=== PATIENT | male | born 1945 | race Caucasian/White ===

== ENCOUNTER → 2017-02-27 | Outpatient (CLI) | payer OTHER ==
[~2017-02-27] MED LIST: EZET10TA63; SIMV20TA2
[2017-02-27 14:53] LABS: BASO ABS # 0.05 K/uL (0-0.2); COMPLETE YES; IG% 0.2 %; LYMPH % 32.1 %; LYMPH ABS # 1.62 K/uL (1.2-3.4); MEAN CELL VOLUME 98.8 fL (80-100); MEAN CORPUSCULAR HEMOGLOBIN 32.1 pg (25-34); MEAN CORPUSCULAR HGB CONC 32.5 g/dl (32-36); MEAN PLATELET VOLUME 10.9 fL (7.4-10.4); MONO % 13.1 %; NEUT % 48.6 %; PLATELET COUNT 207 K/uL (130-400); RED BLOOD COUNT 4.05 M/uL (4.7-6.1); WHITE BLOOD COUNT 5.05 K/uL (4.8-10.8)
[2017-02-27 15:14] LABS: ALT/SGPT 36 U/L (12-78); AST/SGOT 23 U/L (15-37); BLOOD UREA NITROGEN 16 mg/dl (7-18); BUN/CREATININE RATIO 17.3 (10-20); CALCIUM 8.5 mg/dl (8.5-10.1); CARBON DIOXIDE 26 mmol/L (21-32); CHLORIDE 109 mmol/L (98-107); CREATININE 0.92 mg/dl (0.60-1.40); GLUCOSE 113 mg/dl (70-99); POTASSIUM 4.4 mmol/L (3.5-5.1); SODIUM 141 mmol/L (136-145)
[2017-02-27 15:19] LABS: ALB/GLOB RATIO 1.1 (0.9-2); ALKALINE PHOSPHATASE 59 U/L (45-117); CHOLESTEROL 142 mg/dl (0-200); CHOLESTEROL/HDL RATIO 3.2; HDL CHOLESTEROL 44 mg/dl; LDL CHOLESTEROL CALCULATED 75 mg/dl; PROSTATE SPECIFIC ANTIGEN 0.309 ng/ml (0.000-4.000); TRIGLYCERIDES 115 mg/dl (0-150); VERY LOW DENSITY LIPOPROT CALC 23 mg/dl
== END | disposition home or self-care (01) ==
LOC: C.LABSPEC 13:42
PROVIDERS: ATTEND Family Medicine
DX: Z00.00 Encounter for general adult medical examination without abnormal findings (principal); Z12.5 Encounter for screening for malignant neoplasm of prostate; I25.10 Atherosclerotic heart disease of native coronary artery without angina pectoris; E78.2 Mixed hyperlipidemia

== ENCOUNTER 2017-10-15 09:06 | Inpatient (IN) | payer OTHER ==
[2017-09-14 13:45] VITALS: Ht 172.7 cm; Wt 93.5 kg
--- NOTE | 2017-09-14 14:27 | PAT Medication Instructions ---
Service Date Sep 14, 2017. Current Home Medication List Acetaminophen (Tylenol Arthritis Ext Rel), 650 MG PO BID Aspirin (Aspirin Ec), 81 MG PO QAM Atorvastatin (Lipitor), 40 MG PO HS Clopidogrel (Plavix), 75 MG PO QAM Isosorbide Mononitrate Ext Rel (Imdur Ext Rel), 15 MG PO QAM Lisinopril (Zestril), 2.5 MG PO QAM Metoprolol Succ (Toprol Xl) (Toprol-Xl), 12.5 MG PO HS [Otc Med ], 1 TAB PO PRN Medication Instructions For Your Scheduled Surgery - Hold the following medications 5 days prior to surgery per your real estate site analyst' s instructions: Clopidogrel (Plavix), 75 MG PO QAM - Hold the following medications the morning of surgery: [Otc Med ], 1 TAB PO PRN Lisinopril (Zestril), 2.5 MG PO QAM - Take the following medications the morning of surgery with a sip of water: Aspirin (Aspirin Ec), 81 MG PO QAM Acetaminophen (Tylenol Arthritis Ext Rel), 650 MG PO BID (can be tkaen up to four hours before surgery) Isosorbide Mononitrate Ext Rel (Imdur Ext Rel), 15 MG PO QAM - Take the following medications as scheduled the night before surgery: Metoprolol Succ (Toprol Xl) (Toprol-Xl), 12.5 MG PO HS Atorvastatin (Lipitor), 40 MG PO HS Acetaminophen (Tylenol Arthritis Ext Rel), 650 MG PO BID If you have any questions please call us at [phone] or [phone] or [phone]
--- NOTE | 2017-09-14 15:19 | DIAGNOSTIC IMAGING REPORT ---
CHEST 2 VIEWS ROUTINE CLINICAL HISTORY: Preoperative chest COMPARISON STUDY: No previous studies for comparison. FINDINGS: The cardiac and mediastinal contours are normal. There is no evidence of focal pulmonary consolidation. There is no evidence of failure. No pleural effusions are visualized.[ There is a calcified right middle lobe granuloma. IMPRESSION: No active disease in the chest. Electronically signed by: Gilberto Howe M.D. 09/14/2017 3:18 PM Dictated Date/Time: 09/14/2017 3:18 PM
[2017-09-14 16:02] LABS: BASO % 0.7 %; BASO ABS # 0.03 K/uL (0-0.2); EOS % 3.9 %; EOS ABS # 0.18 K/uL (0-0.5); HEMATOCRIT 38.5 % (42-52); HEMOGLOBIN 12.8 g/dL (14.0-18.0); IG# 0.01 K/uL (0.00-0.02); LYMPH % 37.1 %; MEAN CORPUSCULAR HEMOGLOBIN 33.2 pg (25-34); MEAN CORPUSCULAR HGB CONC 33.2 g/dl (32-36); MEAN PLATELET VOLUME 10.9 fL (7.4-10.4); MONO % 14.8 %; MONO ABS # 0.68 K/uL (0.11-0.59); NEUT % 43.3 %; NEUT ABS # 1.98 K/uL (1.4-6.5); PLATELET COUNT 193 K/uL (130-400); RED CELL DISTRIBUTION WIDTH CV 13.7 % (11.5-14.5); RED CELL DISTRIBUTION WIDTH SD 49.5 fL (36.4-46.3); WHITE BLOOD COUNT 4.58 K/uL (4.8-10.8)
[2017-09-14 16:10] LABS: ALBUMIN 3.4 gm/dl (3.4-5.0); CALCIUM 8.6 mg/dl (8.5-10.1); CREATININE 0.87 mg/dl (0.60-1.40); POTASSIUM 4.3 mmol/L (3.5-5.1)
[2017-09-14 16:14] LABS: PTT PATIENT 26.2 SECONDS (21.0-31.0)
[2017-09-15 07:02] LABS: HEMOGLOBIN A1C 6.2 % (4.5-5.6)
--- NOTE | 2017-10-14 18:25 | HISTORY & PHYSICAL EXAMINATION ---
DATE OF ADMISSION: 10/15/2017 CHIEF COMPLAINT: Chronic left shoulder pain. HISTORY OF PRESENT ILLNESS: This is a 71-year-old male patient of Dr. Hair'gary complaining of chronic left shoulder pain and weakness, longstanding, now progressively getting worse. The patient has failed conservative treatment and has elected to proceed with a left total shoulder arthroplasty with a reversed set up on backup. PAST MEDICAL HISTORY: Coronary artery disease status post an DE in 2016, hypercholesterolemia, and rheumatoid arthritis. SOCIAL HISTORY: Nonsmoker and occasional drinker. PAST SURGICAL HISTORY: Carpal tunnel release and knee replacement surgery in the past. FAMILY HISTORY: Noncontributory. REVIEW OF SYSTEMS: The patient complains of chronic left shoulder pain and weakness. Otherwise, denies any shortness of breath, chest pain, nausea, vomiting or any other joint complaints. MEDICATIONS: Isosorbide dinitrate 30 mg 1-1/2 tablets daily, aspirin 81 mg daily, Tylenol extra strength 500 mg 2 tablets every 6 hours as needed, atorvastatin 40 mg daily, lisinopril 2.5 mg daily, Plavix 75 mg daily, metoprolol 25 mg 1/2 tablet 2 times daily. ALLERGIES: No known drug allergies. PHYSICAL EXAMINATION: GENERAL: Well-developed, well-nourished 71-year-old male in no acute distress. He is alert and oriented x3 and pleasant. HEENT: Normocephalic, atraumatic. Extraocular motions are intact. Pupils are equal and reactive to light. HEART: Regular rate and rhythm, no murmurs. LUNGS: Clear. ABDOMEN: Soft, nontender, bowel sounds present. EXTREMITIES: Left shoulder reveals active range of motion to 120 degrees, passively to 140 degrees. He has 3/5 strength with external rotation, 4/5 strength with internal rotation. He has crepitation with passive range of motion and pain. NEUROLOGIC: Neurovascularly, he is intact in his left upper extremity. DIAGNOSES: Left shoulder end-stage osteoarthritis with a history of hypertension, hypercholesterolemia, coronary artery disease status post a myocardial infarction in 2016 and rheumatoid arthritis. PLAN: The patient was advised of his diagnosis. Indications, risks, benefits, and postop course have all been reviewed. The patient wished to proceed with a left total shoulder arthroplasty with a reversed set up as backup. Necessary consent forms, preoperative testing and clearances will be obtained.
[2017-10-15] VITALS (7 sets, daily range): BP systolic 117–159; BP diastolic 72–91; PULSE 56–88; TEMP 36.3–36.6; O2SAT 93–96
[~2017-10-15] VITALS: Ht 172.7 cm; Wt 93.5 kg
[~2017-10-15 09:06] MED LIST changes: +ACET1TAB84 PO; +ACETAMINOPHEN 500 MG TAB PO SCH; +ASPI81TA28 PO; +ATOR-24 PO; +ATROPINE SULFATE 0.1 MG/ML 5ML SYR IV PRN; +CEFAZOLIN 2000MG IV PUSH 10 ML IV SCH; +CLOP1TAB15 PO; +CeleBREX 200 MG CAP PO SCH; +DEXAMETHASONE 4 MG TAB PO SCH; -EZET10TA63; +EpHEDrine SULFATE INJ 50 MG/ML AMP IV PRN; +FAMOTIDINE 20 MG TAB PO SCH; +FENTANYL CITRATE INJ 50 MCG/1 ML 2 ML VIAL IV PRN; +GABAPENTIN 300 MG CAP PO SCH; +ISOS30TA3 PO; +LACTATED RINGER'S 1000ML 1,000 ML IV SCH; +LACTATED RINGER'S 1000ML IV SCH; +LISI-729 PO; +METO25TA3 PO; +METOCLOPRAMIDE HCL 10 MG TAB PO SCH; +ONDANSETRON INJ 2 MG/ML 2 ML VIAL IV PRN; +OTC MED PO; +ROPIVACAINE 0.5% 5 MG/ML 30 ML VIAL ONE; -SIMV20TA2
--- NOTE | 2017-10-15 09:22 | History & Physical Bridge Note ---
H&P Re-Evaluation Bridge Note: I have examined the patient, reviewed the History & Physical and in the interval since the performance of the History & Physical I have noted the following changes of clinical significance: No changes noted
[2017-10-15] MEDS ORDERED: LIDOCAINE HCL 2% 2 ML VIAL (20MG/ML) ONE (11:09)
[2017-10-15] MEDS ORDERED: GLYCOPYRROLATE INJ 0.2 MG/ML VIAL ONE ×2 (11:09→14:02)
[2017-10-15] MEDS ORDERED: MIDAZOLAM HCL 1 MG/ML 2ML VIAL ONE (11:09)
[2017-10-15] MEDS ORDERED: ONDANSETRON INJ 2 MG/ML 2 ML VIAL ONE (11:09)
[2017-10-15] MEDS ORDERED: NEOSTIGMINE METHYLSULFATE 5 MG/5 ML SYR ONE (11:09)
[2017-10-15] MEDS ORDERED: PROPOFOL IV EMULSION 10 MG/ML 20 ML VIAL IV ONE (11:09)
[2017-10-15] MEDS ORDERED: FENTANYL CITRATE INJ 50 MCG/1 ML 2 ML VIAL ONE (11:09)
[2017-10-15] MEDS ORDERED: DEXAMETHASONE SOD INJ 4 MG/ML VIAL ONE (11:09)
[2017-10-15] MEDS ORDERED: BACITRACIN 50000 UNIT VIAL ONE (12:01)
[2017-10-15] MEDS ORDERED: EpHEDrine SULFATE 50MG/5ML SYR ONE ×2 (13:15→13:40)
[2017-10-15] MEDS ORDERED: ROCURONIUM BROMIDE 10 MG/ML 5 ML VIAL IV ONE ×2 (13:44→14:31)
[2017-10-15] MEDS ORDERED: LARYING-O-JET KIT (LTA) ONE (14:02)
--- NOTE | 2017-10-15 14:58 | [facility] Post Operative Brief Note ---
Immediate Operative Summary Operative Date Oct 15, 2017. Pre-Operative Diagnosis Left shoulder rotator cuff arthropathy ,degenerative arthritis ,nonrepairable rotator cuff tear Post-Operative Diagnosis same ,chronic long head biceps rupture Procedure(s) Performed Left reverse total shoulder arthroplasty Surgeon Dr. Patel Hair Bacteriologist Dairy Surgeon(s) Oneil Fung PA-C Estimated Blood Loss 150cc Findings as above Specimens A. Left humeral head Drains 2 hemovac Anesthesia general and regional Complication(s) None Disposition Recovery Room / PACU
[2017-10-15] MEDS ORDERED: [UNRECOGNIZED DRUG - OTHER] PO SCH (15:00)
[2017-10-15] MEDS ORDERED: NALOXONE HCL 0.4 MG/1 ML VIAL/CARP IV PRN (15:00)
[2017-10-15] MEDS ORDERED: ONDANSETRON INJ 2 MG/ML 2 ML VIAL IV PRN (15:00)
[2017-10-15] MEDS ORDERED: MAGNESIUM HYDROXIDE SUSP 30 ML UDC PO PRN (15:00)
[2017-10-15] MEDS ORDERED: METOCLOPRAMIDE HCL INJ 5 MG/ML 2 ML VIAL IV PRN (15:00)
[2017-10-15] MEDS ORDERED: ZOLPIDEM TARTRATE 5 MG TAB PO PRN (15:00)
[2017-10-15] MEDS ORDERED: BISACODYL 10 MG SUPP PR PRN (15:00)
[2017-10-15] MEDS ORDERED: SOD PHOSPHATE/SOD BIPHOSPHATE ENEMA 132 ML BTL PR PRN (15:00)
--- NOTE | 2017-10-15 15:18 | Anesthesiology Progress Note ---
Anesthesia Post Op Note Date & Time Oct 15, 2017 at 15:18 Vital Signs Pain Intensity: 0 Vital Signs Past 12 Hours Date Time Temp Pulse Resp B/P (MAP) Pulse Ox O2 Delivery O2 Flow Rate FiO2 10/15/17 10:05 36.3 57 20 159/91 96 Room Air Notes Mental Status: alert / awake / arousable, participated in evaluation Pt Amnestic to Procedure: Yes Nausea / Vomiting: adequately controlled Pain: adequately controlled Airway Patency, RR, SpO2: stable & adequate BP & HR: stable & adequate Hydration State: stable & adequate Anesthetic Complications: no major complications apparent Block working well in pacu
--- NOTE | 2017-10-15 15:33 | DIAGNOSTIC IMAGING REPORT ---
LEFT SHOULDER 2 VIEWS CLINICAL HISTORY: Postoperative examination. Findin portable views of the left shoulder are obtained. The skeletal structures are osteopenic. A left shoulder arthroplasty is in near anatomic alignment. No fracture is seen. There is mild widening at the acromioclavicular joint which may be on a postoperative basis. There are expected postoperative findings overlying the left shoulder including skin clips, a surgical drain, subcutaneous gas, and soft tissue swelling. The partially imaged left lung parenchyma appears clear. IMPRESSION: Expected postoperative findings status post left shoulder arthroplasty. No fracture is seen. Electronically signed by: Elia Pelletier M.D. 10/15/2017 3:32 PM Dictated Date/Time: 10/15/2017 3:31 PM
--- NOTE | 2017-10-15 16:34 | OPERATIVE REPORT ---
DATE OF OPERATION: 10/15/2017 INDICATION FOR PROCEDURE: The patient is a 71-year-old male with chronic left shoulder pain. His x-rays and MRI demonstrated there is a retractable, likely nonrepairable rotator cuff tear. His plain x-ray demonstrates proximal migration of the humerus, appears to be bone on bone between the humerus and the acromion. He has some glenohumeral arthritis but not bone on bone, appears to be more acromiohumeral narrowing, consistent with chronic rotator cuff tear. Prognosis for repair with proximal migration and nonrepairable rotator cuff likely and treatment options discussed with patient and patient wants to proceed with a reverse total shoulder replacement at this time. PREOPERATIVE DIAGNOSIS: Left shoulder rotator cuff arthropathy with nonrepairable rotator cuff tear. POSTOPERATIVE DIAGNOSES: Same including chronic long head biceps rupture. PROCEDURE: Left reversed total shoulder arthroplasty. SURGEON: Dr. Hair. FPGA ENGINEER: Oneil Fung PA-C. ANESTHESIA: Regional block general. OPERATIVE PROCEDURE: The patient was taken to the operating room, anesthetized under regional block and general anesthetic. He was positioned on the operating room table with a 40 degree beach chair position. A towel roll was placed in the medial border left scapula. He was translated to left side of the bed, so his shoulder could be manipulated off the bed as necessary. His head was placed on a foam headrest. He had a protective eyewear. TEDs and SCDs. Left shoulder exam demonstrated good passive range of motion and subacromial crepitation. His left shoulder was sterilely prepped and draped with ChloraPrep. An anterior deltopectoral approach was performed with longitudinal incision in the deltopectoral interval. The skin was incised sharply. Subcutaneous flaps were elevated. The cephalic vein was dissected out and retracted laterally with the deltoid. The deltoid retracted laterally, the pectoralis was retracted medially, the upper centimeter of the pectoralis was released for inferior exposure. We noted that there was an absent biceps tendon and retraction below the level of the pectoralis. The clavipectoral fascia was divided at the lateral margin of the conjoined tendon and extended up to the CA ligament which was preserved. He had a large bursal fluid collection overlapping the subscapularis tendon coming from the upper cuff which was a chronic cuff tear. This large thickened bursa collection was carefully dissected off the underlying cup and resected revealing a very large rotator cuff tear. He had some teres minor intact, some portion of his infraspinatus intact, but some of the supraspinatus was torn and all the supraspinatus was torn. He had a lot of large osteophytes at the greater tuberosity area and had osteophytes around the lesser tuberosity. A self-retaining retractor was placed and then the circumflex vessels were identified and then dissected out and tied off with silk ties and divided laterally. The muscle fibers were split at the level of the circumflex vessels divided down to the capsule which was identified clearly and then the inferior fibers were reflected off the capsule to protect the axillary nerve inferiorly. I placed a blunt Rivera retractor between the capsule and the inferior fibers of the subscapularis and lower lying axillary nerve to protect throughout the procedure. The similar rotator interval scar tissue was resected and then the subscapularis was taken down with an incision through the bicipital groove and then a subperiosteal dissection performed to release the subscapularis tendon fibers and subsequently the capsule off the lesser tuberosity and neck of the humerus. Did release the capsule on the neck for inferior exposure during the procedure. A running #1 Vicryl suture was placed through a free hand of the subscapularis tendon to control that tendon. Tendon was noted to be thinned and significantly tendinopathic but it did have some reasonable tissue that was be reasonable for repair at the end of procedure. The Fukuda retractor was then placed into the joint. The humeral head had several areas of grade 4 areas of wear on the head with advanced DJD of glenoid so at the articular surface. The capsule was then released to the 7 o'clock position on this left shoulder, staying above the level of the axillary nerve region. The capsule was released off the anterior glenoid and the rotator interval tissue was divided down to meet that creating a 360 degree release of the subscapularis. Some tendinopathic subscapularis tendon tissue was excised and some of the thickened capsule was resected. A Bankart retractor was then placed anteriorly then the labrum was resected circumferentially doing anterior inferior, posterior inferior capsular release using electrocautery on bone and a Short elevator to perform the capsular release. Then the humeral head was exposed with extension and external rotation and the guide for the Tornier reversed total shoulder arthroplasty system was used. We used the Ascend Flex long stem humeral components and the Aequalis glenoid and went glenosphere components. The humeral head cut was made at 20 degrees of retroversion and then the canal was prepared with sequential broaches which we were able to broach up to a 4 with the sizing broaches; however, with the trial stem broaches, we only were able to get to a 3 as the patient had very dense cancellous bone and the metaphysis. We had a tight press fit at 3 level. We then placed a cup protector of the humeral head and retracted that posterior to the glenoid and then curetted off the articular surface to get the true version of the glenoid and then he had some a thin glenoid from anterior to posterior but longer from inferior to superior, so I felt we should go ahead with a 25 mm baseplate which had the best fit. We placed in the lower third of the glenoid, so we would not get any anterior notching. A drill hole was placed in about 10 degrees of inferior tilt. After we used that, we went ahead and used 25 mm reamer and the patient also had very dense bone in his glenoid. Then, the central drill hole was widened for the 25 mm baseplate post. Then, 25 mm baseplate, hydroxyapatite coated implant was impacted into position with a tight press fit after we irrigated out the bone with antibiotic solution and bacitracin. After that was completed, which we had a very tight pressfit, we did anterior and posterior compression screws of 18 mm and superior and inferior locking screws of 35 mm with excellent fixation. We used the fan reamer for the 36 glenosphere and then placed a standard 36 x 25 mm standard glenosphere in position, it was impacted onto the baseplate and then tightened with the screw to complete the fixation. We tested this with a Short elevator to be stable. After further irrigation, we went ahead and placed the +0 high offset humeral tray, which gave the best coverage over the cut bone surface. Then we did a trial reduction with a 36+6 poly insert and there was no shuck and good range of motion and no instability. The trial was removed with use of a bone hook. Then, the final implant was chosen and assembled. We assembled the 3B humeral stem to the +0 high offset tray to the 36+6 humeral poly insert. The 3 drill holes were made into the hard bone in the bicipital groove bone placing transosseous #5 FiberWire sutures around the lesser tuberosity and then after further irrigation of the humeral bone and shaft, irrigated this out and then placed the final stem and with a tight pressfit. This was reduced to the glenoid and verified stability. Then, the subscapularis tendon was repaired with the #5 FiberWire sutures using Orlando-Otilio suture technique. The repair was stable through 50 degrees of external rotation and 90 degrees of abduction and forward elevation to 120 degrees. The pectoralis split was then repaired with [id number] #2 Fiberwire sutures and then 2 drains were placed to deltopectoral interval. Deltopectoral interval was closed with [id number] #1 Vicryl sutures, subcutaneous tissues closed with interrupted 2-0 Vicryl, skin closed with stephan, sterile dressings were applied and the patient tolerated the procedure well. DESIRE Lee was electrician station assistant functioned as electrician station assistant for the entire procedure. He assisted in patient positioning, assisted in prepping, draping, arm positioning, soft tissue retraction, instrument management and performed the subcutaneous skin closure and will participate in postoperative care of the patient. I attest to the content of the Intraoperative Record and any orders documented therein. Any exception s are noted below.
[2017-10-15] MEDS ORDERED: HydrALAZINE HCL 20 MG/ML VIAL IV. PRN (17:00)
--- NOTE | 2017-10-15 17:07 | Medical Consult ---
Consultation Date of Consultation: Oct 15, 2017. Attending Physician: Patel Hair M.D. Reason for Consultation: Medical management History of Present Illness This is a 71 y/o male with a history of CAD, SC 07/2016, HTN, HLD, and RA who presents s/p left reverse TSA with Dr. Hair on 10/15 for medical management. The patient reports feeling well postoperatively. He denies any pain currently. He does report numbness and tingling in his left upper extremity. He is urinating without difficulty. He has not yet eaten, passed gas or had a bowel movement postop. The patient denies fevers, chills, sweats, chest pain, palpitations, claudication, cough, wheezing, shortness of breath, nausea, vomiting, abdominal pain, dysuria, hematuria, urinary retention, paralysis, weakness. Past Medical/Surgical History CAD SC July 2016 HTN HLD RA Family History Diabetes mellitus Hypertension Myocardial infarction Social History Smoking Status: Never Smoker Smokeless Tobacco Use: No Alcohol Use: none Drug Use: none Marital Status: Housing Status: lives with significant other Occupation Status: retired Allergies Coded Allergies: No Known Allergies (Verified , 10/15/17) Current Inpatient Medications Current Inpatient Medications Medications (Trade) Dose Ordered Sig/Man Route Start Time Stop Time Status Last Admin Dose Admin Cefazolin Sodium 10 ml @ 2.5 mls/min PREOP IV 10/15/17 06:00 10/15/17 18:00 10/15/17 12:24 2.5 MLS/MIN Acetaminophen (Tylenol Tab) 1,000 mg PREOP PO 10/15/17 06:00 10/15/17 18:00 10/15/17 10:25 1,000 MG Celecoxib (CeleBREX CAP) 200 mg PREOP PO 10/15/17 06:00 10/15/17 18:00 10/15/17 10:27 200 MG Dexamethasone (Decadron Tab) 8 mg PREOP PO 10/15/17 06:00 10/15/17 18:00 10/15/17 10:27 8 MG Famotidine (Pepcid Tab) 20 mg PREOP PO 10/15/17 06:00 10/15/17 18:00 10/15/17 10:26 20 MG Gabapentin (Neurontin Cap) 300 mg PREOP PO 10/15/17 06:00 10/15/17 18:00 10/15/17 10:26 300 MG Metoclopramide HCl (Reglan Tab) 10 mg PREOP PO 10/15/17 06:00 10/15/17 18:00 10/15/17 10:26 10 MG Lactated Ringer's 1,000 ml @ 15 mls/hr Q24H IV 10/15/17 06:00 10/16/17 05:59 Lactated Ringer's 1,000 ml @ 60 mls/hr [id number] IV 10/15/17 06:00 10/15/17 22:39 10/15/17 10:40 60 MLS/HR Aspirin (Ecotrin Tab) 81 mg QAM PO 10/16/17 09:00 11/15/17 08:59 Atorvastatin Calcium (Lipitor Tab) 40 mg HS PO 10/15/17 21:00 11/14/17 20:59 Clopidogrel Bisulfate (plAVix TAB) 75 mg QAM PO 10/16/17 09:00 11/15/17 08:59 Isosorbide Mononitrate (Imdur Ext Rel Tab) 15 mg QAM PO 10/16/17 09:00 11/15/17 08:59 Lisinopril (Zestril Tab) 2.5 mg QAM PO 10/16/17 09:00 11/15/17 08:59 Metoprolol Succinate (Toprol Xl Tab) 12.5 mg HS PO 10/15/17 21:00 11/14/17 20:59 Non-Formulary Medication ([Otc Med ] ) 1 tab PRN PO 10/15/17 15:00 11/14/17 14:59 UNV Diphenhydramine HCl (Benadryl Cap) 25 mg Q8 PRN PO 10/15/17 15:00 11/14/17 14:59 Zolpidem Tartrate (Ambien Tab) 5 mg HSZ PRN PO 10/15/17 15:00 11/14/17 14:59 Metoclopramide HCl (Reglan Inj) 10 mg Q6H PRN IV 10/15/17 15:00 11/14/17 14:59 Ondansetron HCl (Zofran Inj) 4 mg Q6H PRN IV 10/15/17 15:00 11/14/17 14:59 Pantoprazole Sodium (Protonix Tab) 40 mg QAM PO 10/16/17 09:00 11/15/17 08:59 UNV Potassium Chloride/Dextrose/ Sod Cl 1,000 ml @ 100 mls/hr Q10H IV 10/15/17 15:00 10/16/17 13:59 UNV Oxycodone HCl (Roxicodone Immediate Rel Tab) `1-2 TABS FOR PAIN `1 TAB... Q4H PRN PO 10/15/17 15:00 10/29/17 14:59 UNV Acetaminophen (Tylenol Tab) 1,000 mg Q8 PO 10/15/17 22:00 11/14/17 21:59 UNV Morphine Sulfate (MoRPHine SULFATE INJ) as needed Q2H PRN IV 10/15/17 15:00 10/29/17 14:59 UNV Naloxone HCl (Narcan Inj) 0.1 mg Q2M PRN IV 10/15/17 15:00 11/14/17 14:59 UNV Magnesium Hydroxide (Milk Of Magnesia Susp) 30 ml Q6H PRN PO 10/15/17 15:00 11/14/17 14:59 UNV Bisacodyl (Dulcolax Supp) 10 mg DAILY PRN MO 10/15/17 15:00 11/14/17 14:59 UNV Sodium Biphosphate/ Sodium Phosphate (Fleet Enema) 132 ml DAILY PRN MO 10/15/17 15:00 11/14/17 14:59 UNV Docusate Sodium (coLACE CAP) 100 mg BID PO 10/15/17 21:00 11/14/17 20:59 UNV Multivitamins (Multivitamin Tab) 1 tab DAILY PO 10/16/17 09:00 11/15/17 08:59 UNV Cefazolin Sodium 2000 mg/Dextrose 60 ml @ 100 mls/hr Q8H IV 10/15/17 15:00 10/15/17 23:35 UNV Review of Systems See HPI for pertinent positives and negatives. All other systems reviewed and negative. Physical Exam Date Time Temp Pulse Resp B/P (MAP) Pulse Ox O2 Delivery O2 Flow Rate FiO2 10/15/17 16:57 36.6 88 16 136/84 (101) 94 Nasal Cannula 3.0 10/15/17 16:25 36.6 71 18 131/72 (91) 94 Nasal Cannula 2.0 10/15/17 16:15 51 17 122/74 93 Nasal Cannula 2 10/15/17 16:00 51 17 126/68 94 Nasal Cannula 2 10/15/17 15:45 36.0 64 17 140/78 93 Nasal Cannula 2 10/15/17 15:35 55 17 135/72 93 Nasal Cannula 2 10/15/17 15:25 60 18 142/79 95 Oxymask 10 10/15/17 15:15 68 17 138/83 93 Oxymask 10 10/15/17 15:08 36.0 84 18 119/97 95 Oxymask 10 10/15/17 10:05 36.3 57 20 159/91 96 Room Air General appearance: +Obese. Well-developed, well-nourished, no apparent distress Head: Normocephalic, atraumatic Eyes: Normal inspection, PERRL, EOMI ENT: Normal ENT inspection, hearing grossly normal, pharynx normal Neck: Supple, no JVD, trachea midline Respiratory/Chest: Lungs clear to auscultation, normal breath sounds, no respiratory distress Cardiovascular: +Systolic murmur. Regular rate & rhythm, no gallop Abdomen/GI: Normal bowel sounds, non-tender, soft Extremities/Musculoskeletal: +Left shoulder dressed, in sling. Normal cap refill. Decreased sensation LUE. No calf tenderness, no pedal edema Neurological/Psych: Alert, normal mood/affect, oriented x 3 Skin: Normal color, warm/dry, no rash Assessment & Plan 71 y/o male with a history of CAD, SC 07/2016, HTN, HLD, and RA who presents s/ p left reverse TSA with Dr. Hair on 10/15 for medical management. S/p L reverse TSA--POD #0 -Pain management, DVT prophylaxis, and PT/OT as per primary team -Bradycardic in PACU, HR now up to 70. AVSS. No pain CAD, h/o SC, HTN, HLD--stable -Continue ASA 81 mg PO qd, Plavix 75 mg PO qd, Toprol XL 12.5 mg PO qd, Lipitor 40 mg PO qd, and Imdur 15 mg PO qd -Hold lisinopril for now until renal function checked/stable -Cover with hydralazine 10 mg IV q6h prn SBP >180 -Hold metoprolol if HR less than 60 RA--pt takes Tylenol arthritis BID at home -Pain control per primary team, scheduled Tylenol q8h Thank you for this consultation. We will continue to follow. Resident Physician Supervision Note: I was present with the PA, Batool Dixon, during the history and exam. I discussed the case with the PA and agree with the findings and plan as documented in the note. Any exceptions or clarifications are listed here: 71 y/o M CAD - SC 2017, HTN, HPL, RA - post elective R TSA Recovering well post-op - denies CP, SOB, N/V, lighthead - expresses appetite OE AAO x 3 S1,2 R CTAB NT, ND No CCE Peripheral pulses intact P: Cont IVF, analgesics as needed Cont Bblocker - restart Lisinopril AM Does not treat RA with a DMARD or steroid presently Documented By: Clay Willett
[2017-10-15 17:20] LABS: HEMATOCRIT 38.9 % (42-52); HEMOGLOBIN 13.1 g/dL (14.0-18.0); MEAN CORPUSCULAR HEMOGLOBIN 33.3 pg (25-34); MEAN CORPUSCULAR HGB CONC 33.7 g/dl (32-36); MEAN PLATELET VOLUME 10.5 fL (7.4-10.4); PLATELET COUNT 180 K/uL (130-400); RED CELL DISTRIBUTION WIDTH CV 13.8 % (11.5-14.5); RED CELL DISTRIBUTION WIDTH SD 49.8 fL (36.4-46.3); WHITE BLOOD COUNT 5.34 K/uL (4.8-10.8)
[2017-10-15 17:47] LABS: CALCIUM 8.8 mg/dl (8.5-10.1); CREATININE 1.1 mg/dl (0.60-1.40); POTASSIUM 3.5 mmol/L (3.5-5.1)
[2017-10-15] MEDS ORDERED: NURSING VERBAL MED ORDER ONE (19:00)
[2017-10-15] MEDS: CEFAZOLIN IV 2,000 MG in SYRINGE 0 ML IV SCH (20:05)
[2017-10-15] MEDS: ATORVASTATIN 40 MG TAB PO SCH (21:38)
[2017-10-15] MEDS: ACETAMINOPHEN 500 MG TAB PO SCH (21:39)
[2017-10-15] MEDS: DOCUSATE SODIUM 100 MG CAP PO SCH (21:39)
[2017-10-15] MEDS: METOPROLOL SUCC 25MG EXT REL TAB PO SCH (21:39)
[2017-10-15] MEDS: OXYCODONE HCL IR 5 MG TAB (IMMEDIATE RELEASE) PO PRN (21:40)
[2017-10-15] MEDS: D5W AND 1/2NSS + 20MEQ KCL 1,000 ML IV SCH (23:26)
[2017-10-16 03:30] VITALS: BP 147/75; PULSE 58; TEMP 36.5; O2SAT 94
[2017-10-16] MEDS: CEFAZOLIN IV 2,000 MG in SYRINGE 0 ML IV SCH (03:48)
[2017-10-16 06:00] LABS: HEMATOCRIT 35.9 % (42-52); MEAN CELL VOLUME 98.4 fL (80-100); MEAN CORPUSCULAR HEMOGLOBIN 32.9 pg (25-34); MEAN CORPUSCULAR HGB CONC 33.4 g/dl (32-36); MEAN PLATELET VOLUME 10.4 fL (7.4-10.4); PLATELET COUNT 182 K/uL (130-400); RED CELL DISTRIBUTION WIDTH CV 13.9 % (11.5-14.5); RED CELL DISTRIBUTION WIDTH SD 49.7 fL (36.4-46.3); WHITE BLOOD COUNT 9.54 K/uL (4.8-10.8)
[2017-10-16] MEDS: ACETAMINOPHEN 500 MG TAB PO SCH ×3 (06:15→21:35)
[2017-10-16 06:45] LABS: CALCIUM 8.4 mg/dl (8.5-10.1); CREATININE 1.24 mg/dl (0.60-1.40); POTASSIUM 4.2 mmol/L (3.5-5.1)
[2017-10-16 07:31] VITALS: BP 119/72; PULSE 53; TEMP 36.5; O2SAT 95
--- NOTE | 2017-10-16 07:43 | Orthopedic Progress Note ---
Orthopedic Progress Note Date of Service Oct 16, 2017. Subjective Post OP Day: 1 Reports: feeling well, Denies: complaints Additional Notes: Block working well. States he has some residual numbness/tingling in fingers. Hasn't had to use po pain meds yet. Objective calves soft nontender, dressing C/D/I, A&O x3, CMS intact, hemovac drainage ( 75ml) Moving fingers well. Good ROM of wrist. Date Time Temp Pulse Resp B/P (MAP) Pulse Ox O2 Delivery O2 Flow Rate FiO2 10/16/17 07:31 36.5 53 16 119/72 (88) 95 Room Air 10/16/17 03:30 36.5 58 16 147/75 (99) 94 Room Air 10/15/17 23:59 36.6 63 16 121/83 (96) 93 Room Air 10/15/17 23:15 Room Air 10/15/17 19:30 36.5 62 16 117/75 (89) 94 Nasal Cannula 2.0 10/15/17 18:25 36.5 72 16 136/80 (98) 95 Nasal Cannula 2.0 10/15/17 17:26 36.5 85 16 132/81 (98) 95 Nasal Cannula 3.0 10/15/17 16:57 36.6 88 16 136/84 (101) 94 Nasal Cannula 3.0 10/15/17 16:25 Nasal Cannula 2.0 10/15/17 16:25 36.6 71 18 131/72 (91) 94 Nasal Cannula 2.0 10/15/17 16:25 Nasal Cannula 2.0 10/15/17 16:15 51 17 122/74 93 Nasal Cannula 2 10/15/17 16:00 51 17 126/68 94 Nasal Cannula 2 10/15/17 15:45 36.0 64 17 140/78 93 Nasal Cannula 2 10/15/17 15:35 55 17 135/72 93 Nasal Cannula 2 10/15/17 15:25 60 18 142/79 95 Oxymask 10 10/15/17 15:15 68 17 138/83 93 Oxymask 10 10/15/17 15:08 36.0 84 18 119/97 95 Oxymask 10 10/15/17 10:05 36.3 57 20 159/91 96 Room Air Laboratory Results 24 Hours: Test 10/15/17 17:10 10/16/17 05:47 Hematocrit 38.9 % 35.9 % Hemoglobin 13.1 g/dL 12.0 g/dL Assessment & Plan Assessment: POD 1 s/p Reverse TSA Plan: PT/OT Planning for OPPT Inhouse Planning Pain Management: Morphine, PO Tylenol, Oxy IR DVT Prophylaxis: TEDs, SCDs, ASA, other (Plavix) Discharge Planning Discharge Planning: home with oppt
--- NOTE | 2017-10-16 08:30 | Anesthesiology Progress Note ---
Anesthesia Post Op Note Date & Time Oct 16, 2017 at 08:30 Vital Signs Pain Intensity: 5.0 Vital Signs Past 12 Hours Date Time Temp Pulse Resp B/P (MAP) Pulse Ox O2 Delivery O2 Flow Rate FiO2 10/16/17 07:31 36.5 53 16 119/72 (88) 95 Room Air 10/16/17 03:30 36.5 58 16 147/75 (99) 94 Room Air 10/15/17 23:59 36.6 63 16 121/83 (96) 93 Room Air 10/15/17 23:15 Room Air Notes Mental Status: alert / awake / arousable, participated in evaluation Pt Amnestic to Procedure: Yes Nausea / Vomiting: adequately controlled Pain: adequately controlled Airway Patency, RR, SpO2: stable & adequate BP & HR: stable & adequate Hydration State: stable & adequate Anesthetic Complications: no major complications apparent
[2017-10-16] MEDS: MULTIVITAMIN TAB PO SCH (08:58)
[2017-10-16] MEDS: DOCUSATE SODIUM 100 MG CAP PO SCH ×2 (08:58→21:08)
[2017-10-16] MEDS: ASPIRIN 81 MG ECTAB PO SCH (08:58)
[2017-10-16] MEDS: CLOPIDOGREL BISULFATE 75 MG TAB PO SCH (08:59)
[2017-10-16] MEDS: PANTOprazole SOD 40 MG TAB PO SCH (08:59)
[2017-10-16] MEDS ORDERED: LISINOPRIL 2.5 MG TAB PO SCH (09:00)
[2017-10-16] MEDS: ISOSORBIDE MONONITRATE 30 MG TABCR PO SCH (09:00)
--- NOTE | 2017-10-16 10:07 | Discharge Instructions ---
Discharge Instructions Date of Service Oct 16, 2017. Admission Reason for Admission: Left Shoulder Rotator Cuff Arthropathy Discharge Discharge Diagnosis / Problem: Left Shoulder Djd; Rotator Cuff Arthropathy Discharge Goals Goal(s): Decrease discomfort, Improve function, Increase independence Activity Recommendations Activity Limitations: per Instructions/Follow-up section Weightbearing Status: Left non-weightbearing . Instructions / Follow-Up Instructions / Follow-Up ACTIVITY RECOMMENDATIONS: SELF CARE INSTRUCTIONS AFTER TOTAL SHOULDER ARTHROPLASTY REVERSE A. You may do daily exercises as taught in physical therapy while in hospital. No lifting with the operative arm. B. You are to wear your sling/immobilizer at all times EXCEPT when performing your daily exercises and for hygiene purposes. C. You may perform dry, daily dressing changes. Please keep your incision covered. You may shower 48 hours after surgery. Do not apply soap or any ointment/ lotions directly over incision. Do not soak incision in bath tub/swimming pool. D. You may use ice as needed to operative shoulder. SPECIAL CARE INSTRUCTIONS: VERY IMPORTANT TO READ AND REVIEW A. There are a few signs you need to watch for after you are home. Call [facility] at [phone] if you experience any of the followin. Increased severe shoulder pain. Some pain is expected especially when you exercise. 2. Increased swelling in you shoulder or arm; pain or swelling in either upper extremity. 3. Any fluid drainage from the incision. 4. Shortness of breath or chest pain. B. Please call [facility] at [phone] if you have any questions or concerns about your operation or recovery. C. Call your physician if: 1. Temperature is greater than 101 degrees (F). 2. Pain is not relieved by prescribed pain medications. 3. Increase drainage or redness from incision. 4. Unanswered questions or concerns. FOLLOW UP VISIT: Please call [facility] at [phone] to schedule a follow up appointment with Dr. Hair or his PA in 12-14 days from your surgery date. Current Hospital Diet Patient's current hospital diet: AHA Diet (Heart Healthy) Discharge Diet Recommended Diet: AHA Diet (Heart Healthy) Procedures Procedures Performed: Left reverse total shoulder arthroplasty Pending Studies Studies pending at discharge: no Laboratory Results Hemoglobin A1c Test 09/14/17 14:40 Range/Units Estimated Average Glucose 131 mg/dl Hemoglobin A1c 6.2 H 4.5-5.6 % Medical Emergencies . Who to Call and When: Medical Emergencies: If at any time you feel your situation is an emergency, please call 911 immediately. . Non-Emergent Contact Non-Emergency issues call your: Surgeon Call Non-Emergent contact if: temperature is above 101.5, your pain is not controlled, your pain is worsening, wound has increased drainage, wound has increased redness . "Provider Documentation" section prepared by Lavelle Weston. . VTE Core Measure Inpt VTE Proph given/why not?: Other Anticoagulation, T.E.D. Stockings, SCD's [place] Drug Monitoring Program Search Results: patient reviewed within database, no issues identified
[2017-10-16 10:45] VITALS: BP 103/57; PULSE 59; TEMP 36.7; O2SAT 94
[2017-10-16] MEDS: D5W AND 1/2NSS + 20MEQ KCL 1,000 ML IV SCH ×2 (10:51→14:31)
[2017-10-16] MEDS: OXYCODONE HCL IR 5 MG TAB (IMMEDIATE RELEASE) PO PRN ×4 (10:54→21:09)
--- NOTE | 2017-10-16 14:11 | Progress Note ---
Subjective Date of Service: Oct 16, 2017. Subjective Pt evaluation today including: conversation w/ patient, conversation w/ family , physical exam, lab review, review of inpatient medication list Pain: left shoulder pain PO Intake: adequate Voiding: no voiding problems doing well reviewed labs, Cr and Hb stable Review of Systems Musculoskeletal: + joint pain (left shoulder, moderate) All Other Systems: Reviewed and Negative Medications Current Inpatient Medications Medications (Trade) Dose Ordered Sig/Man Route Start Time Stop Time Status Last Admin Dose Admin Aspirin (Ecotrin Tab) 81 mg QAM PO 10/16/17 09:00 11/15/17 08:59 10/16/17 08:58 81 MG Atorvastatin Calcium (Lipitor Tab) 40 mg HS PO 10/15/17 21:00 11/14/17 20:59 10/15/17 21:38 40 MG Clopidogrel Bisulfate (plAVix TAB) 75 mg QAM PO 10/16/17 09:00 11/15/17 08:59 10/16/17 08:59 75 MG Isosorbide Mononitrate (Imdur Ext Rel Tab) 15 mg QAM PO 10/16/17 09:00 11/15/17 08:59 10/16/17 09:00 15 MG Lisinopril (Zestril Tab) 2.5 mg QAM PO 10/16/17 09:00 11/15/17 08:59 Future Hold Metoprolol Succinate (Toprol Xl Tab) 12.5 mg HS PO 10/15/17 21:00 11/14/17 20:59 10/15/17 21:39 12.5 MG Diphenhydramine HCl (Benadryl Cap) 25 mg Q8 PRN PO 10/15/17 15:00 11/14/17 14:59 Zolpidem Tartrate (Ambien Tab) 5 mg HSZ PRN PO 10/15/17 15:00 11/14/17 14:59 Metoclopramide HCl (Reglan Inj) 10 mg Q6H PRN IV 10/15/17 15:00 11/14/17 14:59 Ondansetron HCl (Zofran Inj) 4 mg Q6H PRN IV 10/15/17 15:00 11/14/17 14:59 Pantoprazole Sodium (Protonix Tab) 40 mg QAM PO 1/12/18 09:00 11/15/17 08:59 10/16/17 08:59 40 MG Potassium Chloride/Dextrose/ Sod Cl 1,000 ml @ 100 mls/hr Q10H IV 10/15/17 17:30 10/16/17 17:29 10/16/17 10:51 100 MLS/HR Oxycodone HCl (Roxicodone Immediate Rel Tab) `1-2 TABS FOR PAIN `1 TAB... Q4H PRN PO 10/15/17 15:00 10/29/17 14:59 10/16/17 12:29 5 MG Acetaminophen (Tylenol Tab) 1,000 mg Q8 PO 10/15/17 22:00 11/14/17 21:59 10/16/17 06:15 1,000 MG Morphine Sulfate (MoRPHine SULFATE INJ) as needed Q2H PRN IV 10/15/17 15:00 10/29/17 14:59 Naloxone HCl (Narcan Inj) 0.1 mg Q2M PRN IV 10/15/17 15:00 11/14/17 14:59 Magnesium Hydroxide (Milk Of Magnesia Susp) 30 ml Q6H PRN PO 10/15/17 15:00 11/14/17 14:59 Bisacodyl (Dulcolax Supp) 10 mg DAILY PRN MO 10/15/17 15:00 11/14/17 14:59 Sodium Biphosphate/ Sodium Phosphate (Fleet Enema) 132 ml DAILY PRN MO 10/15/17 15:00 11/14/17 14:59 Docusate Sodium (coLACE CAP) 100 mg BID PO 10/15/17 21:00 11/14/17 20:59 10/16/17 08:58 100 MG Multivitamins (Multivitamin Tab) 1 tab DAILY PO 10/16/17 09:00 11/15/17 08:59 10/16/17 08:58 1 TAB Hydralazine HCl (HydrALAZINE INJ) 10 mg Q6H PRN IV. 10/15/17 17:00 11/14/17 16:59 Objective Vital Signs Date Time Temp Pulse Resp B/P (MAP) Pulse Ox O2 Delivery O2 Flow Rate FiO2 10/16/17 10:45 36.7 59 16 103/57 (72) 94 Room Air 10/16/17 07:45 Room Air 10/16/17 07:31 36.5 53 16 119/72 (88) 95 Room Air 10/16/17 03:30 36.5 58 16 147/75 (99) 94 Room Air 10/15/17 23:59 36.6 63 16 121/83 (96) 93 Room Air 10/15/17 23:15 Room Air 10/15/17 19:30 36.5 62 16 117/75 (89) 94 Nasal Cannula 2.0 10/15/17 18:25 36.5 72 16 136/80 (98) 95 Nasal Cannula 2.0 10/15/17 17:26 36.5 85 16 132/81 (98) 95 Nasal Cannula 3.0 10/15/17 16:57 36.6 88 16 136/84 (101) 94 Nasal Cannula 3.0 10/15/17 16:25 Nasal Cannula 2.0 10/15/17 16:25 36.6 71 18 131/72 (91) 94 Nasal Cannula 2.0 10/15/17 16:25 Nasal Cannula 2.0 10/15/17 16:15 51 17 122/74 93 Nasal Cannula 2 10/15/17 16:00 51 17 126/68 94 Nasal Cannula 2 10/15/17 15:45 36.0 64 17 140/78 93 Nasal Cannula 2 10/15/17 15:35 55 17 135/72 93 Nasal Cannula 2 10/15/17 15:25 60 18 142/79 95 Oxymask 10 10/15/17 15:15 68 17 138/83 93 Oxymask 10 10/15/17 15:08 36.0 84 18 119/97 95 Oxymask 10 Physical Exam General Appearance: WD/WN, no apparent distress Eyes: normal inspection, EOMI, sclerae normal ENT: normal ENT inspection, hearing grossly normal, pharynx normal Neck: supple, no adenopathy, no JVD, trachea midline Respiratory/Chest: chest non-tender, lungs clear, normal breath sounds, no respiratory distress, no accessory muscle use Cardiovascular: regular rate, rhythm, no edema, no gallop, no JVD, no murmur Abdomen: normal bowel sounds, non tender, soft, no organomegaly Extremities: no pedal edema, no calf tenderness, normal capillary refill, pelvis stable, + pertinent finding (left shoulder in sling, tender) Neurologic/Psychiatric: log data technician II-XII nml as tested, no motor/sensory deficits, alert, normal mood/affect, oriented x 3 Skin: normal color, warm/dry, no rash Lymphatic: no adenopathy Laboratory Results Last 24 Hours Test 10/15/17 17:10 10/16/17 05:47 White Blood Count 5.34 K/uL 9.54 K/uL Red Blood Count 3.93 M/uL 3.65 M/uL Hemoglobin 13.1 g/dL 12.0 g/dL Hematocrit 38.9 % 35.9 % Mean Corpuscular Volume 99.0 fL 98.4 fL Mean Corpuscular Hemoglobin 33.3 pg 32.9 pg Mean Corpuscular Hemoglobin Concent 33.7 g/dl 33.4 g/dl RDW Standard Deviation 49.8 fL 49.7 fL RDW Coefficient of Variation 13.8 % 13.9 % Platelet Count 180 K/uL 182 K/uL Mean Platelet Volume 10.5 fL 10.4 fL Sodium Level 138 mmol/L 135 mmol/L Potassium Level 3.5 mmol/L 4.2 mmol/L Chloride Level 105 mmol/L 103 mmol/L Carbon Dioxide Level 24 mmol/L 26 mmol/L Anion Gap 9.0 mmol/L 6.0 mmol/L Blood Urea Nitrogen 21 mg/dl 21 mg/dl Creatinine 1.10 mg/dl 1.24 mg/dl Est Creatinine Clear Calc Drug Dose 67.3 ml/min 59.7 ml/min Estimated GFR () 77.3 66.9 Estimated GFR (Non- 66.7 57.7 BUN/Creatinine Ratio 18.9 16.9 Random Glucose 158 mg/dl 156 mg/dl Calcium Level 8.8 mg/dl 8.4 mg/dl Hepatitis C Antibody Screen NEG Assessment and Plan 71 y/o male with a history of CAD, SC 07/2016, HTN, HLD, and RA who presents s/ p left reverse TSA with Dr. Hair on 10/15 for medical management. S/p L reverse TSA--POD #1 -Pain management, DVT prophylaxis, and PT/OT as per primary team - AVSS CAD, h/o SC, HTN, HLD--stable -Continue ASA 81 mg PO qd, Plavix 75 mg PO qd, Toprol XL 12.5 mg PO qd, Lipitor 40 mg PO qd, and Imdur 15 mg PO qd -resume Lisinopril on discharge -Cover with hydralazine 10 mg IV q6h prn SBP >180 -Hold metoprolol if HR less than 60 RA--pt takes Tylenol arthritis BID at home -Pain control per primary team, scheduled Tylenol q8h BMP and CBC stable will sign off at this time, please call if any further issues
[2017-10-16] MEDS: MoRPHine SULFATE 2 MG/ML CARP IV PRN ×3 (14:42→23:13)
[2017-10-16 15:19] VITALS: BP 121/69; PULSE 50; TEMP 36.8; O2SAT 95
[2017-10-16 20:45] VITALS: BP 123/76; PULSE 49
[2017-10-16] MEDS: METOPROLOL SUCC 25MG EXT REL TAB PO SCH (20:47)
[2017-10-16] MEDS: ATORVASTATIN 40 MG TAB PO SCH (21:35)
[2017-10-16 22:52] VITALS: BP 117/77; PULSE 58; TEMP 36.7; O2SAT 95
[2017-10-17] MEDS: ACETAMINOPHEN 500 MG TAB PO SCH (06:10)
[2017-10-17] MEDS: OXYCODONE HCL IR 5 MG TAB (IMMEDIATE RELEASE) PO PRN ×2 (06:11→10:39)
[2017-10-17 06:41] VITALS: BP 120/73; PULSE 48; TEMP 36.8; O2SAT 96
[2017-10-17 07:15] LABS: HEMATOCRIT 33.6 % (42-52); HEMOGLOBIN 11.1 g/dL (14.0-18.0); MEAN CELL VOLUME 98.8 fL (80-100); MEAN CORPUSCULAR HEMOGLOBIN 32.6 pg (25-34); MEAN PLATELET VOLUME 10.8 fL (7.4-10.4); PLATELET COUNT 176 K/uL (130-400); RED CELL DISTRIBUTION WIDTH CV 14.2 % (11.5-14.5); RED CELL DISTRIBUTION WIDTH SD 50.9 fL (36.4-46.3); WHITE BLOOD COUNT 9.68 K/uL (4.8-10.8)
--- NOTE | 2017-10-17 07:16 | Orthopedic Progress Note ---
Orthopedic Progress Note Date of Service Oct 17, 2017. Subjective Post OP Day: 2 Reports: feeling well, pain controlled w PO medications, Denies: complaints, chest pain, SOB, nausea / vomiting, calf pain Objective calves soft nontender, N/V intact, capillary refill less than 2 sec., dressing C /D/I, A&O x3, toes mobile Date Time Temp Pulse Resp B/P (MAP) Pulse Ox O2 Delivery O2 Flow Rate FiO2 10/17/17 06:41 36.8 48 16 120/73 (89) 96 Room Air 10/16/17 23:05 Room Air 10/16/17 22:52 36.7 58 18 117/77 (90) 95 Room Air 10/16/17 20:45 49 123/76 (92) 10/16/17 15:19 36.8 50 16 121/69 (86) 95 Room Air 10/16/17 15:15 Room Air 10/16/17 10:45 36.7 59 16 103/57 (72) 94 Room Air 10/16/17 07:45 Room Air 10/16/17 07:31 36.5 53 16 119/72 (88) 95 Room Air Laboratory Results 24 Hours: Test 10/17/17 06:27 Hematocrit 33.6 % Hemoglobin 11.1 g/dL Assessment & Plan Assessment: POD 2 s/p Reverse TSA Plan: PT/OT Planning for OPPT Inhouse Planning Pain Management: Morphine, PO Tylenol, Oxy IR DVT Prophylaxis: TEDs, SCDs, ASA, other (Plavix) Discharge Planning Discharge Planning: home with oppt
[2017-10-17] MEDS ORDERED: RXC5 PO (07:17)
[2017-10-17 07:44] LABS: CALCIUM 8.1 mg/dl (8.5-10.1); CREATININE 1.02 mg/dl (0.60-1.40); POTASSIUM 4.3 mmol/L (3.5-5.1)
[2017-10-17] MEDS: ASPIRIN 81 MG ECTAB PO SCH (07:44)
[2017-10-17] MEDS: CLOPIDOGREL BISULFATE 75 MG TAB PO SCH (07:44)
[2017-10-17] MEDS: MULTIVITAMIN TAB PO SCH (07:44)
[2017-10-17] MEDS: PANTOprazole SOD 40 MG TAB PO SCH (07:45)
[2017-10-17 07:46] VITALS: BP 134/73; PULSE 63
[2017-10-17] MEDS: ISOSORBIDE MONONITRATE 30 MG TABCR PO SCH (07:48)
[2017-10-17] MEDS: DOCUSATE SODIUM 100 MG CAP PO SCH (07:51)
[2017-10-17 10:19] VITALS: BP 134/73; PULSE 63; TEMP 36.8; O2SAT 96
== END 2017-10-17 12:44 | disposition home or self-care (01) | DRG 483 ==
LOC: C.ACU 09:06 → C.3E 09:35 → ENRESERV 15:54
PROVIDERS: ADMIT Orthopaedic Surgery Sports Medicine; ATTEND Orthopaedic Surgery Sports Medicine
PROC: 0RRK00Z Replacement of Left Shoulder Joint with Reverse Ball and Socket Synthetic Substitute, Open Approach (ICD-10-PCS; principal; 2017-10-15 11:30)
DX: M19.212 Secondary osteoarthritis, left shoulder (principal); I50.20 Unspecified systolic (congestive) heart failure; I45.2 Bifascicular block; I11.0 Hypertensive heart disease with heart failure; M75.102 Unspecified rotator cuff tear or rupture of left shoulder, not specified as traumatic; M66.812 Spontaneous rupture of other tendons, left shoulder; I25.10 Atherosclerotic heart disease of native coronary artery without angina pectoris; E78.5 Hyperlipidemia, unspecified; M06.9 Rheumatoid arthritis, unspecified; E66.9 Obesity, unspecified; Z68.31 Body mass index [BMI] 31.0-31.9, adult; I25.2 Old myocardial infarction; Z79.02 Long term (current) use of antithrombotics/antiplatelets; Z79.1 Long term (current) use of non-steroidal anti-inflammatories (NSAID); Z79.82 Long term (current) use of aspirin; Z79.899 Other long term (current) drug therapy

== ENCOUNTER 2025-09-13 08:10 | Observation (INO) ==
--- NOTE | 2025-08-30 09:48 | PAT Medication Instructions ---
Medication Instructions Date of Service August 30, 2025 Home Medications atorvastatin 40 mg tablet 40 mg PO QAM clopidogrel 75 mg tablet 75 mg PO QAM isosorbide mononitrate 30 mg tablet,extended release 24 hr 15 mg PO QAM lisinopril 2.5 mg tablet 2.5 mg PO QAM omega-3 fatty acids 1,000 mg PO DAILY ASK your prescriber and surgeon clopidogrel 75 mg tablet 75 mg PO QAM(in order for spinal or epidural anesthesia, clopidogrel (Plavix) needs to be stopped 7 days before surgery. Please check if okay with doctor that prescribes this to you) STOP taking 2 weeks before surgery (or as soon as possible if surgery is within 2 weeks) omega-3 fatty acids 1,000 mg PO DAILY DO NOT take the morning of surgery lisinopril 2.5 mg tablet 2.5 mg PO QAM Take morning of surgery With a small sip of water, OTHERWISE NOTHING TO EAT OR DRINK AFTER MIDNIGHT: atorvastatin 40 mg tablet 40 mg PO QAM isosorbide mononitrate 30 mg tablet,extended release 24 hr 15 mg PO QAM Other Notes If you have any questions please call us at [phone] or [phone] or [phone] or [phone]
--- NOTE | 2025-09-06 11:08 | Anesthesiology Consultation ---
Date of Service September 06, 2025 Assessment & Plan (1) Encounter for pre-operative examination: - Infectious disease screening: Per assessment on 09/06/25- No known recent infectious disease contacts or current infectious disease symptoms. - Outpatient joint assessment: Pt currently scheduled for inpatient pathway. If surgeon requests review for outpatient joint pathway, patient is not a recommended candidate for outpatient joint program from anesthesia standpoint bsaed on available information. - Cardiology visit 06/28/25: "Findings of stress test were reviewed, he has mixed ischemia and infarction. LVEF is preserved on the echo, he does not have volume overload. He does not have any new symptoms or unstable symptoms. From a pre-op perspective, there do not appear to be any contraindications, but he's at elevated risk, was discussed. He's not sure if he wants to take that risk. He continues on his guideline directed medical therapy, not on beta blockade secondary to bradycardia. Given the muscle stiffness, he will hold atorvastatin and let me know the response in 2 weeks. He was advised to call me either way with the response on holding Lipitor. Echo was reviewed. Prior EKG was reviewed, conduction disease is stable and asymptomatic. He has a follow-up appointment with me in January." Decision by cardio to medically manage stress test f indings/cardiac hx. Case reviewed with Dr. Gomez; feels nothing further needed preoperatively from a cardiac perspective. - Cardiology note 08/30/25: "From a pre-op perspective, there do not appear to be any contraindications, but he is at elevated risk.. Plavix can be withheld for 7 days, but when Plavix is withheld aspirin 81 mg daily should be initiate d." Patient seen at PAT 09/06/25 (DOS 09/13/25). He indicated that he took his Plavix 09/06/25 at 0600. Aware not to take any further until after upcoming surgery. Reviewed with Dr. Awan. Recommend if possible for patient to not be first case/be later case in order to allow for patient to fully be off Plavix 7 days prior to surgery/neuraxial anesthesia. Albina with surgeon's office notified and made aware of request- received response that they will - PCP note 09/08/25: "Moderate risk.. Patient is cleared for scheduled surgery.." Chart Review Chart Review: Acceptable Risk for Surgery and Patient seen in Pre Admission Testing Teaching & Discussion Pre-Anesthesia Teaching/Discussion Notes: Instructed NPO after midnight before surgery,except medications with 15 cc of water. Medication instructions provided according to the PAT guidelines. History Surgery Operation Date: 09/13/25 09:55 Proposed Procedures p Right Total Knee Arthroplasty - Patel Hair MD Height/Weight Height: 5 ft 11 in Weight: 90.4 kg Allergies Allergy/AdvReac Type Severity Reaction Status Date / Time nickel AdvReac Mild Nausea Verified 08/30/25 07:58 Medications Home Medications Medication Instructions Recorded Confirmed Last Taken atorvastatin 40 mg tablet 40 mg PO QAM 04/05/20 08/30/25 04/15/20 clopidogrel 75 mg tablet 75 mg PO QAM 04/05/20 08/30/25 04/06/20 isosorbide mononitrate 30 mg 15 mg PO QAM 04/05/20 08/30/25 04/15/20 tablet,extended release 24 hr lisinopril 2.5 mg tablet 2.5 mg PO QAM 04/05/20 08/30/25 04/15/20 omega-3 fatty acids 1,000 mg PO DAILY 08/30/25 08/30/25 Unknown Past Medical History Medical History (Updated 09/06/25 @ 13:06 by Minnie Torre) Bifascicular block RBBB + LAFB Dating back to at least 09/14/2017 [facility] ECG CAD (coronary artery disease) 10/2021- DALILA x2 Follows with [employer] ([place])/Dr. Osmar Richardson Chronic anemia Hx of myocardial infarction Hyperlipidemia Hypertension Osteoarthritis Exercise / Class Metabolic Activity III < 4 Walking/Shop/Light housework Past Family History Family History Mother Family history of diabetes mellitus Past Surgical History Surgical History History of amputation Right 2nd toe (~ 30 years) Left 2ns toe (04/16/2020): [facility], [facility] History of cardiac cath 2016 (per cardio records)- no stents 10/2021- DALILA x 2 History of carpal tunnel release of both wrists Remote hx History of colonoscopy History of shoulder surgery Left History of tooth extraction History of total knee replacement Left Hx of heart artery stent 10/2021- DALILA x 2 Past Anesthesia History No Hx of Anesthesia Complications and No Family Hx of Anesthesia Complications History of PONV No Hx of PONV and No Hx of Motion Sickness Social History Smoking Status: Never smoker Do You Dip or Chew Tobacco: No (quit 20+ years ago) Hx Alcohol Use: No Hx Substance Use: No substance use type: does not use Review of Systems Patient denies chest pain, shortness of breath, fever, chills, cough, wheezing, palpitations. Physical Exam Vital Signs BP 121/85 P 57 TEMP 97.6 SP02 95%RA RESP 16 Physical Full cervical extension range of motion. Full TMJ range of motion. TMD 3 finger breaths Mallampati Score II Dentition: upper partial plate Lungs: clear throughout to auscultation Cardiac: regular rate and rhythm, no murmurs noted Spine: normal Carotid arteries: negative bruit Extremities: no LE edema Lab Results Anesthesia Preop Results Results Anesthesia Widget: WBC 5.65 K/ul (4.8-10.8) 09/06/25 Hgb 12.2 g/dL (14.0-18.0) L 09/06/25 Hct 36.4 % (42.0-52.0) L 09/06/25 Plt 185 K/uL (130-400) 09/06/25 Na 136 mmol/L (136-145) 09/06/25 K 4.5 mmol/L (3.5-5.1) 09/06/25 Cl 106 mmol/L (98-107) 09/06/25 CO2 25 mmol/L (21-32) 09/06/25 BUN 21 mg/dl (6-23) 09/06/25 Creat 0.72 mg/dl (0.6-1.4) 09/06/25 Glucose Level 110 mg/dl (70-99(Fasting)) H 09/06/25 PT 11.1 Seconds (9.0-12.0) 09/06/25 PTT 28 Seconds (21-31) 09/06/25 INR 1.1 (0.9-1.1) 09/06/25 Urine Color Yellow 09/06/25 Urine Appearance Clear (Clear) 09/06/25 Urine pH 7.0 (4.5-7.5) 09/06/25 Urine Specific [place] 1.020 (1.000-1.030) 09/06/25 Urine Protein Negative (Negative) 09/06/25 Urine Glucose (UA) Negative (Negative) 09/06/25 Urine Ketones Negative (Negative) 09/06/25 Urine Blood Negative (Negative) 09/06/25 Urine Nitrite Negative (Negative) 09/06/25 Urine Bilirubin Negative (Negative) 09/06/25 Urine Urobilinogen Negative (Negative) 09/06/25 Urine Leukocyte Esterase Negative (Negative) 09/06/25 Blood Type B Positive 09/06/25 Antibody Screen NEGATIVE 09/06/25 Testing Electrocardiogram Date: 09/06/25 SB at 48bpm. RBBB. LAFB. *Bifascicular block* No significant change compared to 09/14/2017 per government affairs specialist comparison. Chest X-Ray Date: 09/06/25 FINDINGS: Calcified granuloma within the right middle lobe is unchanged. This is benign. A subtle right upper lung nodular density is also unchanged. This is likely benign. Left shoulder arthroplasty is incidentally noted. Cardio mediastinal silhouette is normal. There is no consolidation to suggest pneumonia. There is no evidence for pulmonary edema. IMPRESSION: No acute cardiopulmonary findings. No change in appearance of the chest. Echocardiogram Date: 02/08/25 Mild left ventricular dilatation, inferolateral hypokinesis with otherwise preserved LV systolic function, LVEF 50-55%. Grade 1 (mild) left ventricular diastolic dysfunction. Mildly dilated right ventricle, preserved systolic function. Left atrium is moderately dilated. Mitral Valve: Trace regurgitation. Tricuspid Valve: Trace regurgitation. RV/PA systolic pressure is mildly elevated, estimated at 30-35 mmHg. Aorta: Normal sinus of Valsalva. Mildly to moderately enlarged ascending aorta, measured at 4.5 cm. Normal aortic arch. "On direct comparison to previous images from 03/2023, there has been minimal change." per report. Stress Test Date: 06/01/25 Left ventricular perfusion is abnormal. This study indicates the presence of ischemia and infarction. PerfusionDefects: There is small to medium sized, moderate in intensity, apical perfusion defect noted with partial reversibility. There is a small sized, mild to moderate in intensity, partially reversible perfusion defect noted in lateral/inferolateral wall segments with mild partial reversibility. No evidence of ECG changes to suggest ischemia. The patient reported dyspnea during the stress test. Calculated LVEF is 44% and is reduced. Cardiac Catheterization Date: 10/07/21 Coronary Findings Diagnostic Dominance: Right Left Anterior Descending: There is mild diffuse disease throughout the vessel. Prox LAD to Mid LAD lesion is 40% stenosed. Left Circumflex: Prox Cx lesion is 99% stenosed. The lesion is eccentric and irregular. The lesion is calcified. Mid Cx lesion is 70% stenosed. First Obtuse Marginal Branch: The vessel is small. Right Coronary Artery: Prox RCA to Dist RCA lesion is 100% stenosed. Right Posterior Descending Artery: RPDA filled by collaterals from Jun. Successful rotational atherectomy of proximal circumflex with 1.5 mm bur. Cutting balloon angioplasty of the proximal circumflex. Successful stenting of the proximal circumflex with 2 overlapping drug-eluting stents.
--- NOTE | 2025-09-12 19:40 | History & Physical Report ---
Date of Service September 12, 2025 Assessment & Plan (1) Osteoarthritis of right knee: Plan: End-stage right knee osteoarthritis. Plan for right total knee arthroplasty. Plan for [place] triathlon knee replacement like other knee replacement. Osteoarthritis type: primary Qualified Code(s): M17.11 - Unilateral primary osteoarthritis, right knee History of Present Illness Chief Complaint: Chronic right knee pain Primary Care Provider: Franky Gómez DO 79-year-old male with right knee pain related to osteoarthritis with progressive valgus deformity of his knee. Patient had prior successful left knee replacement * Patient denies headaches, sweats, fevers, chills, double vision, blurred vision, cough, sore throat, dysphagia, chest pain, sob, wheezing, n/v/d/c, numbness, tingling, fatigue, urinary symptoms, mood disorders. ROS positive for lower back pain. Allergies Allergy/AdvReac Type Severity Reaction Status Date / Time nickel AdvReac Mild Nausea Verified 08/30/25 07:58 Home Medications Medication Instructions Recorded Confirmed Type atorvastatin 40 mg tablet 40 mg PO QAM 04/05/20 08/30/25 History clopidogrel 75 mg tablet 75 mg PO QAM 04/05/20 08/30/25 History isosorbide mononitrate 30 mg 15 mg PO QAM 04/05/20 08/30/25 History tablet,extended release 24 hr lisinopril 2.5 mg tablet 2.5 mg PO QAM 04/05/20 08/30/25 History omega-3 fatty acids 1,000 mg PO DAILY 08/30/25 08/30/25 History Past Med/Surg History Problem List (Updated 09/12/25 @ 19:39 by Patel Hair MD) Osteoarthritis of right knee Encounter for pre-operative examination Hyperlipidemia Coronary artery disease Rotator cuff arthropathy of left shoulder Medical History Chronic anemia Bifascicular block RBBB + LAFB Dating back to at least 09/14/2017 [facility] ECG CAD (coronary artery disease) 10/2021- DALILA x2 Follows with [facility] ([place])/Dr. Osmar Richardson Hx of myocardial infarction Osteoarthritis Hypertension Hyperlipidemia Surgical History Hx of heart artery stent 10/2021- DALILA x 2 History of carpal tunnel release of both wrists Remote hx History of amputation Right 2nd toe (~ 30 years) Left 2ns toe (04/16/2020): [facility] History of total knee replacement Left History of colonoscopy History of tooth extraction History of cardiac cath 2016 (per cardio records)- no stents 10/2021- DALILA x 2 History of shoulder surgery Left Family History Mother Family history of diabetes mellitus Social History Smoking Status: Never smoker Second Hand Exposure: No; Do You Dip or Chew Tobacco: No (quit 20+ years ago); Tobacco Cessation Education Requested by Patient: No Hx Alcohol Use: No Hx Substance Use: No Preferred Language: Kinyarwanda Communication Ability: Effective Customer Solutions Architect Required: No Beliefs That Will Affect Care: None Current Living Situation: Spouse Other Information That Helps Us Care for You: No Feels Safe at Home: Yes Safety Concerns: Feels Safe At This Time Assistive Devices: Cane, Denture - Upper and Hearing Aid - Bilateral Assistive Devices Comment: partial upper Review of Systems All systems reviewed & are unremarkable except as noted in HPI & below Physical Exam Constitutional: WD/WN, vitals as above Respiratory: normal respiratory effort; no respiratory distress Cardiovascular: Rate/Rhythm: regular rate and regular rhythm Musculoskeletal: Right knee with antalgic gait, right sided limp, use of cane, valgus knee with mild effusion lateral joint line tenderness moderate swelling mild crepitation of the patella with some lateral alignment of the patella and increased patellar tilt with some laxity and instability with valgus stress and 15 through 100 degrees range of motion. Distal circulation sensorimotor exam intact. Left knee 0 to 125 degrees range of motion with mild swelling and a stable knee replacement. Skin: no rashes, warm and dry Neurologic: normal touch/pain/proprioception Psychiatric: A+Ox3, euthymic affect Results & Data Diagnostic Findings Right knee x-rays demonstrate a valgus knee with [id number] in the lateral compartment with bone loss of the femoral condyle and tibial plateau with subluxation of the femur medially on the tibia and slight laterally aligned patella without any major tilt but moderately advanced patellofemoral osteoarthritis. PixelPin total knee replacement of the contralateral knee.
[~2025-09-13 08:10] MED LIST changes: -ACET1TAB84 PO; -ACETAMINOPHEN 500 MG TAB PO SCH; -ASPI81TA28 PO; -ATOR-24 PO; -ATROPINE SULFATE 0.1 MG/ML 5ML SYR IV PRN; +BUPIVACAINE 0.5 % 5 MG/1 ML PF 10ML VIAL ONE; -CEFAZOLIN 2000MG IV PUSH 10 ML IV SCH; -CLOP1TAB15 PO; -CeleBREX 200 MG CAP PO SCH; -DEXAMETHASONE 4 MG TAB PO SCH; -EpHEDrine SULFATE INJ 50 MG/ML AMP IV PRN; -FAMOTIDINE 20 MG TAB PO SCH; -FENTANYL CITRATE INJ 50 MCG/1 ML 2 ML VIAL IV PRN; -GABAPENTIN 300 MG CAP PO SCH; -ISOS30TA3 PO; -LACTATED RINGER'S 1000ML 1,000 ML IV SCH; -LACTATED RINGER'S 1000ML IV SCH; -LISI-729 PO; -METO25TA3 PO; -METOCLOPRAMIDE HCL 10 MG TAB PO SCH; -ONDANSETRON INJ 2 MG/ML 2 ML VIAL IV PRN; -OTC MED PO
[2025-09-13] MEDS: CeleBREX 200 MG CAP PO SCH (08:53)
[2025-09-13] MEDS: METOCLOPRAMIDE HCL 10 MG TABLET PO SCH (08:53)
[2025-09-13] MEDS: ACETAMINOPHEN 500 MG TAB PO SCH ×2 (08:53→16:26)
[2025-09-13] MEDS: FAMOTIDINE 20 MG TAB PO SCH (08:53)
[2025-09-13] MEDS: GABAPENTIN 300 MG CAP PO SCH (08:53)
[2025-09-13] MEDS: LR 60ML/HR IV SCH (09:13)
[2025-09-13] MEDS: dexAMETHasone**PF** 10 MG/ML VIAL IV SCH (09:13)
--- NOTE | 2025-09-13 10:07 | History & Physical Bridge Note ---
Date of Service September 13, 2025 History & Physical Bridge Note I have examined the patient, reviewed the History & Physical and in the interval since the performance of the History & Physical I have noted the following changes of clinical significance: no changes noted
[2025-09-13] MEDS: LR 500ML BOLUS, THEN 15ML/HR IV SCH (10:14)
[2025-09-13] MEDS: TRANEXAMIC ACID 1,000 MG **IV Pre-op IV SCH (10:14)
[2025-09-13] MEDS ORDERED: ONDANSETRON INJ 2 MG/ML 2 ML VIAL ONE ×2 (10:29→13:26)
[2025-09-13] MEDS ORDERED: PROPOFOL IV EMULSION 10 MG/ML 20 ML VIAL IV ONE (10:29)
[2025-09-13] MEDS ORDERED: ePHEDrine sulfate 50 MG/5 ML SYR ONE (11:00)
[2025-09-13] MEDS ORDERED: KETAMINE HCL 10MG/ML SYR ONE (11:01)
[2025-09-13] MEDS ORDERED: HYDROmorphone INJ 2 MG/ML SYR/VIAL ONE (11:02)
[2025-09-13] MEDS: ORTHO JOINT ANESTHETIC ONE (11:16)
[2025-09-13] MEDS: ROPIVACAINE 0.5% HCL/PF 246 MG, Ketorolac (*for OR use only*) 30 MG in SODIUM CHLORIDE ... INFIL SCH (12:09)
--- NOTE | 2025-09-13 13:44 | Operative Report ---
Post Operative Report Pre & Post Diagnosis Operation Date: 09/13/25 09:55 Pre-Op Diagnosis: Osteoarthritis of right knee Post-Op Diagnosis: Osteoarthritis of right knee I identified the patient and participated in the time-out.: Yes Procedure Operation Date: 09/13/25 09:55 Actual Procedures p Right Total Knee Arthroplasty(Right), ana luisa and Acticoat superficial wound VAC application- Patel Hair MD Surgeon Patel Hair MD Surgery Assistant Janes PHIPPS Estimated Blood Loss 20 Findings Consistent with Post-Op Diagnosis Specimens Bone cuts Drains 2 Hemovac Anesthesia Type MAC Spinal Regional Complications none Disposition Disposition: Recovery Room Indications 79-year-old male with chronic progressive osteoarthritis right knee failed conservative management. History of left knee replacement in the past. Right knee has severe osteoarthritis with [id number] lateral compartment with bone loss and a valgus knee with tricompartmental disease. Description of Procedure Patient taken to the operating room the size under spinal MAC regional block anesthesia. Patient was placed supine on the operating table. A pneumatic tourniquet was placed about the right upper thigh. The right lower extremity was prepped and draped in sterile fashion. Knee exam demonstrated 15 to 95 degrees range of motion with no pseudolaxity and a tight valgus knee. The leg was elevated exsanguinated with an Esmarch bandage and pneumatic tourniquet was raised to 325 millimeters of mercury. Skin incised sharply in longitudinal fashion. Subcutaneous flaps elevated. Incision was made through the medial retinaculum extending up in the mid third of the quadriceps tendon and down to the medial tibial tubercle. Intra-articular findings demonstrated tricompartmental osteoarthritis chronic ACL tear 3 compartment osteoarthritis with lprr-af-dghb lateral compartment with bone loss posterior lateral tibial plateau and femoral condyle laterally with eburnated bone. The [employer] triAzzure ITlon total knee arthroplasty system was used. To expose the knee the infrapatellar fat pad was resected. The meniscal remnants and cruciate ligaments were resected. The anterior fat pad over the femur in the area of the location of the anterior flange of the femoral component was resected. The lateral synovial bands were released. The femur was exposed. An intramedullary drill hole was made into the canal. A guide vinny was placed. Distal femoral cutting guide was adjusted to resect a 6 degree valgus cut with 10 millimeters distal femur resected. The knee was extended and a subperiosteal peel lateral release was performed around the patella. Patella width was measured and width was reproduced using a freehand cut technique and a 35 mm o elaine patella component. The 3 drill holes were made and the excess lateral facet was beveled off to prevent any impingement. Attention was taken back to the femur which was exposed with retractors and the femoral sizing guide was pinned in position. The drill holes were placed in 3 of external rotation to match the epicondylar axis and since the guide was posterior referencing we had to externally rotate slightly off the femoral condyle due to the bone loss to match the axis. The femur sized for a 6 component. The 4-in-1 cutting block was placed and then the anterior posterior and chamfer cuts are made. Bone quality was extremely hard and dense bone. The tibia was then subluxed. The external tibial cutting guide was adjusted to make a perpendicular cut to the long axis of the tibia below the most deficient bone loss side. Cut was adjusted for slope. A lamina forest management teacher was used and the flexion extension gaps were balanced. Lateral capsular lateral IT band off the tibia and popliteus tendon and partial resection fibular collateral ligament releases were all sequentially required. All posterior osteophytes removed. This included osteophytes around the posterior lateral tibial plateau. All meniscal remnants were resected. The tibia exposed and the trial tibial component size 5 was externally rotated in line with the tibial tubercle and pinned in position. The punch for stem was used. Due to the sclerotic hard bone I did make multiple drill holes with the pin for better cement acceptance in the posterior medial posterolateral tibial cut area. The femoral notch cutting device was centered appropriately and the femoral notch cut was made. The femoral trial was inserted. Trial tibial inserts were placed and it was noted that the patient was tighter in extension and flexion so we had to take 2 mm more cut off the distal femur. The intramedullary vinny was placed back into the femur and the 2 mm resection guide used distal femoral cut was made and then we had to place the 4-in-1 cutting block back in position and do the chamfer cuts. Femoral trial was then impacted in position and then we assess for ligamentous balance and a 11 mm posterior stabilized trial insert gave balanced ligaments in extension and flexion. Patella tracking was assessed. The patella tracked centrally. The trial components were then removed and the orthomix anesthetic cocktail was injected per protocol. The knee was then copiously irrigated with pulsatile lavage saline solution. Final components were then cemented with Refobacin cement. Final components were size 6 right [place] triathlon posterior stabilized femoral component and a size 5 primary tibial baseplate with a X.3 polyethylene 11 mm posterior stabilized tibial bearing insert and a 35 x 10 mm X.3 polyethy alyse asymmetric patella. After the cement cured further lavage irrigation was then performed with Irrisept followed by pulsatile lavage saline and then 2 Hemovac drains were brought out laterally. The quadriceps tendon and medial retinaculum were closed with #2 FiberWire uobbnr-pj-cnoqq sutures along the medial retinaculum medial side of the patella and distal quadriceps tendon and an additional widrct-tl-older suture at the apex of the quadriceps tendon split proximally and an additional aitrym-ib-senlv suture at the level of the tibial polyethylene in the patella tendon. a 0 running locking STRATAFIX suture was placed starting at the proximal split in the quadriceps tendon extending down to the inferior pole the patella and then below that level lgjumf-ul-ipohc #1 Vicryl sutures were utilized to repair the medial retinaculum to the patella tendon. The knee was taken through full range of motion and the repair was secure. Knee range of motion was 0 through 125 degrees. The subcutaneous tissues were closed with 2-0 Vicryl sutures. Skin was closed with surgical stephan. Ana Luisa and Acticoat superficial wound VAC was applied. The patient tolerated the procedure well. Janes PHIPPS was my physician sugar laboratory assistant who participated as surgery assistant and was involved in all aspects of the procedure including patient positioning prepping and draping,leg positioning ,soft tissue retraction and instrument management and participated in the closing and application of the wound VAC and will participate in postoperative care of the patient. The patient tolerated the procedure well. Im ordering collagen sheets as a primary dressing and bordered super absorbent for secondary dressings for the wound resulting from this surgery. Collagen is being utilized to encourage the growth of blood vessels and granulation tissue. The collagen will also speed up the wound healing process, increase skin tensile strength at the surgery site and lessen the chance of a wound dehiscence, help prevent infection, and reduce the appearance of scarring. The silicone secondary dressings will protect the wound and help keep it clean and minimize that chances for infection. I believe that this treatment protocol is medically necessary to help facilitate the best outcome possible for my patient. I attest to the content of the Intraoperative Record and any orders documented therein. Any exceptions are noted below.
--- NOTE | 2025-09-13 14:00 | XRay Report ---
TWO VIEWS RIGHT KNEE CLINICAL HISTORY: Postoperative examination. FINDINGS: AP and crosstable lateral portable views of the right knee are obtained. A right knee arthr oplasty is in near anatomic alignment. There has been undersurface remodeling of the patella. No acut e fracture is seen. There are expected postoperative changes around the knee including skin clips, a surgical drain, soft tissue edema, and subcutaneous gas. IMPRESSION: Expected postoperative changes status post right knee arthroplasty. No acute fracture is seen. ACT 112: Negative or not required by law. Electronically signed by: Elia Pelletier M.D. 09/13/2025 1:58 PM
[2025-09-13] MEDS ORDERED: METOCLOPRAMIDE HCL INJ 5 MG/ML 2 ML VIAL IV PRN (15:16)
[2025-09-13] MEDS ORDERED: MAGNESIUM HYDROXIDE SUSP 30 ML UDC PO PRN (15:16)
[2025-09-13] MEDS ORDERED: TAMSULOSIN HCL 0.4 MG CAP PO PRN (15:16)
[2025-09-13] MEDS ORDERED: NALOXONE HCL 0.4 MG/1 ML VIAL/CARP IV PRN (15:16)
[2025-09-13] MEDS ORDERED: diphenhydrAMINE Capsule 25 MG CAP PO PRN (15:16)
[2025-09-13] MEDS ORDERED: KETOROLAC TROMETHAMINE 15 MG/ML VIAL IV PRN (15:16)
[2025-09-13] MEDS ORDERED: ALUMINUM/MAGNESIUM SUSP 30 ML UDC PO PRN (15:16)
[2025-09-13] MEDS ORDERED: HYDROmorphone INJ 0.5 MG/0.5 ML SYR IV PRN (15:16)
[2025-09-13] MEDS ORDERED: ONDANSETRON INJ 2 MG/ML 2 ML VIAL IV PRN (15:16)
[2025-09-13] MEDS: SODIUM CHLORIDE 0.9% 1,000 ML IV SCH (15:28)
--- NOTE | 2025-09-13 16:09 | Anesthesiology Progress Note ---
Date of Service September 13, 2025 Anesthesia Post Procedure Vital Signs Vital Signs: Temp Pulse Resp BP Pulse Ox O2 Del Method O2 Flow Rate 09/13/25 15:46 36.6 C 60 16 121/74 97 Nasal Cannula 2 09/13/25 15:10 36.6 C 60 16 123/71 93 Nasal Cannula 2 09/13/25 15:00 64 14 120/79 92 Room Air 09/13/25 14:50 36.4 C L 66 16 122/73 94 Room Air 09/13/25 14:40 58 L 14 125/71 96 Oxymask 10 09/13/25 14:30 63 11 L 121/68 95 Oxymask 10 09/13/25 14:20 63 12 127/76 95 Oxymask 10 09/13/25 14:10 56 L 16 122/69 95 Oxymask 10 09/13/25 14:00 59 L 12 126/78 94 Oxymask 10 09/13/25 13:50 63 12 132/79 94 Oxymask 10 09/13/25 13:40 36.0 C L 65 13 122/79 94 Oxymask 10 09/13/25 08:41 36.7 C 47 L 16 161/90 H 95 Room Air Transfer of Care Handoff Completed per policy Notes Mental Status: alert / awake / arousable and participated in evaluation Patient Amnestic to Procedure: Yes Nausea / Vomiting: adequately controlled Pain: adequately controlled Airway Patency, RR, SpO2: stable & adequate BP & HR: stable & adequate Hydration State: stable & adequate Anesthetic Complications: no major complications apparent and Pt Satisfied with anesthetic care
--- NOTE | 2025-09-13 17:47 | Hospitalist Consultation ---
"Date of Consultation September 13, 2025 Assessment & Plan (1) Osteoarthritis of right knee: (2) Coronary artery disease: (3) Hypertension: (4) Hyperlipidemia: Plan This is an 79 year old gentleman with past medical history of CAD, HTN, HLD who presented to the hospital for an elective right total knee repair on 09/[address] Hair. #OA of Right knee s/p right total knee w/ Dr. Hair on 09/13. ESBL 20cc diet, pain management, PT/OT, DVT prophylaxis, and discharge planning per primary team. #CAD | HTN | HLD hx of 2 stents in circumflex in 2021, has been stable since Continue Imdur, Statin, Lisinopril Resume ASA/Plavix when cleared to do so by primary team. Continue to follow w/ cardiology on outpatient basis. DVT prophylaxis: SCDs, per primary team Code: full updated family at bedside & case was discussed with Dr. Henriquez on 09/13. Thank you for this consult, we will continue to follow along for Phill's care. History of Present Illness Attending Physician: Patel Hair MD History of Present Illness This is an 79 year old gentleman with past medical history of CAD, HTN, HLD who presented to the hospital for an elective right total knee repair on 09/[address] Hair. Phill was seen & examined with his family at bedside. He reports his operation went well today. He denies any pain at time of my encounter. Denies any CP or SOB. Reports dinner went well. He has a hx of PCI w/ 2 stents placed in his circumflex artery in 2021. Reports no cardiac procedures since then. He is compliant with his medications at home Allergies Allergy/AdvReac Type Severity Reaction Status Date / Time nickel AdvReac Mild Nausea Verified 09/13/25 08:28 Home Medications Medication Instructions Recorded Confirmed Type atorvastatin 40 mg tablet 40 mg PO QAM 04/05/20 09/13/25 History clopidogrel 75 mg tablet 75 mg PO QAM 04/05/20 09/13/25 History isosorbide mononitrate 30 mg 15 mg PO QAM 04/05/20 09/13/25 History tablet,extended release 24 hr lisinopril 2.5 mg tablet 2.5 mg PO QAM 04/05/20 09/13/25 History omega-3 fatty acids 1,000 mg PO DAILY 08/30/25 09/13/25 History acetaminophen 500 mg tablet 1,000 mg (2 x 500 mg) PO Q8H #90 09/13/25 Rx (Tylenol Extra Strength) tabs aspirin 500 mg BID 09/13/25 09/13/25 History aspirin 81 mg tablet,delayed 81 mg PO DAILY #30 tabs 09/13/25 Rx release cefadroxil 500 mg capsule 500 mg PO Q12H #28 caps 09/13/25 Rx oxycodone 5 mg tablet 5 mg PO Q4H PRN pain #30 tabs 09/13/25 Rx Patient History Medical History Chronic anemia Bifascicular block RBBB + LAFB Dating back to at least 09/14/2017 [facility] ECG CAD (coronary artery disease) 10/2021- DALILA x2 Follows with [facility] ([place]Dr. Osmar Richardson Hx of myocardial infarction Osteoarthritis Hypertension Hyperlipidemia Surgical History Hx of heart artery stent 10/2021- DALILA x 2 History of carpal tunnel release of both wrists Remote hx History of amputation Right 2nd toe (~ 30 years) Left 2ns toe (04/16/2020): [facility] History of total knee replacement Left History of colonoscopy History of tooth extraction History of cardiac cath 2015 (per cardio records)- no stents 10/2021- DALILA x 2 History of shoulder surgery Left Family History Mother Family history of diabetes mellitus Social History Smoking Status: Never smoker Second Hand Exposure: No; Do You Dip or Chew Tobacco: No (quit 20+ years ago); Tobacco Cessation Education Requested by Patient: No Hx Alcohol Use: No Hx Substance Use: No Preferred Language: Irish Communication Ability: Effective Groundskeeper Porter Required: No Beliefs That Will Affect Care: None Current Living Situation: Spouse Other Information That Helps Us Care for You: No Feels Safe at Home: Yes Safety Concerns: Feels Safe At This Time Assistive Devices: Cane, Denture - Upper and Hearing Aid - Bilateral Assistive Devices Comment: partial upper Physical Exam Physical Exam: General: NAD, VS: BP 141/71; P65; R16; T36.4C Resp: normal respiratory effort, lungs clear to auscultation CV: RRR, no murmur Extremities: no edema Neuro: A&O x3, Skin: intact, no lesions noted Results & Data Results & Data Vital Signs (Past 12 Hours) Vital Signs Temp Pulse Resp BP Pulse Ox O2 Del Method O2 Flow Rate 09/13/25 17:17 36.4 C L 65 16 141/71 H 94 Room Air 09/13/25 16:10 36.5 C 57 L 16 128/74 95 Nasal Cannula 1 09/13/25 15:46 36.6 C 60 16 121/74 97 Nasal Cannula 2 09/13/25 15:15 Nasal Cannula 2 09/13/25 15:10 36.6 C 60 16 123/71 93 Nasal Cannula 2 09/13/25 15:00 64 14 120/79 92 Room Air 09/13/25 14:50 36.4 C L 66 16 122/73 94 Room Air 09/13/25 14:40 58 L 14 125/71 96 Oxymask 10 09/13/25 14:30 63 11 L 121/68 95 Oxymask 10 09/13/25 14:20 63 12 127/76 95 Oxymask 10 09/13/25 14:10 56 L 16 122/69 95 Oxymask 10 09/13/25 14:00 59 L 12 126/78 94 Oxymask 10 09/13/25 13:50 63 12 132/79 94 Oxymask 10 09/13/25 13:40 36.0 C L 65 13 122/79 94 Oxymask 10 09/13/25 08:41 36.7 C 47 L 16 161/90 H 95 Room Air PG Care Time/CCT Total # of Minutes Spent Total Time Spent with Patient: Total time spent is greater than 50% in coordination of care (as documented) at patient's floor/unit and/or counseling patient: Coding Level of Care Code 88046 IN/OBS CONSULT LVL 3,45M Diagnoses Primary osteoarthritis of right knee M17.11 Osteoarthritis type: primary Coronary artery disease I25.10 Hypertension I10 Hyperlipidemia E78.5 (1) Osteoarthritis of right knee Osteoarthritis type: primary Qualified Code(s): M17.11 - Unilateral primary osteoarthritis, right knee"
[2025-09-13] MEDS: SENNA 8.6 MG TAB PO SCH (20:45)
[2025-09-13] MEDS: DOCUSATE SODIUM 100 MG CAP PO SCH (20:45)
[2025-09-13] MEDS: TRANEXAMIC ACID / 0.7% NACL 1,000 MG/100 ML BAG IV SCH (20:45)
[2025-09-14 06:47] LABS: Hematocrit (blood only) 30.1 % (42.0-52.0); Hemoglobin 10.2 g/dL (14.0-18.0); Mean Corpuscular Hemoglobin 34.8 pg (25.0-34.0); Mean Corpuscular Volume 102.7 fL (80.0-100.0); Platelet Count 155 K/uL (130-400); RDW Standard Deviation 52.1 fL (36.4-46.3); Red Blood Count 2.93 M/uL (4.70-6.10); White Blood Count 11.17 K/ul (4.8-10.8)
[2025-09-14 07:20] VITALS: BP 119/69; PULSE 47; RESP 16; TEMP 97.7; O2SAT 94
[2025-09-14 07:22] LABS: Anion Gap 6.0 (3-11); Blood Urea Nitrogen 30.0 mg/dl (6-23); Calcium 8.0 mg/dl (8.6-10.3); Carbon Dioxide 23.0 mmol/L (21-32); Chloride 106.0 mmol/L (98-107); Creatinine Clr Calc Pharmacy 69.0 ml/min; Glucose 161.0 mg/dl (70-99(Fasting)); Potassium 4.7 mmol/L (3.5-5.1); Sodium 135.0 mmol/L (136-145)
[2025-09-14] MEDS: dexAMETHasone 10 MG in SYRINGE 0 ML IV SCH (08:04)
[2025-09-14] MEDS: ISOSORBIDE MONO EXTENDED REL 30 MG TABCR PO SCH (08:06)
[2025-09-14] MEDS: CLOPIDOGREL BISULFATE 75 MG TAB PO SCH (08:06)
[2025-09-14] MEDS: MULTIVITAMIN TAB PO SCH (08:06)
[2025-09-14] MEDS: OMEGA-3 (PURIFIED FISH OIL) 1 GM CAP PO SCH (08:07)
[2025-09-14] MEDS: ASPIRIN 81 MG ECTAB PO SCH (08:07)
[2025-09-14] MEDS: ATORVASTATIN 40 MG TAB PO SCH (08:07)
--- NOTE | 2025-09-14 08:24 | Orthopedic Progress Note ---
Date of Service September 14, 2025 Assessment & Plan (1) Osteoarthritis of right knee: Plan: Postop day 1 right knee replacement. Patient doing well. BUN elevated so likely some relative dehydration and encouraged p.o. fluids. Patient be discharged home today will do outpatient physical therapy. Follow-up in 2 weeks. End-stage right knee osteoarthritis. Plan for right total knee arthroplasty. Plan for [employer] triathlon knee replacement like other knee replacement. Admission and Anticipated Discharge Date Admission Date: September 13, 2025 Subjective Feels well no lightheaded dizziness no chest pain shortness of breath Review of Systems Review of Systems: Feels well Physical Exam Musculoskeletal: Right leg independent straight leg raise dressing dry and intact distal circulation sensorimotor exam intact. Results & Data Vital Signs (Past 12 Hours) Vital Signs Temp Pulse Resp BP Pulse Ox O2 Del Method 09/14/25 07:19 36.5 C 47 L 16 119/69 94 Room Air 09/14/25 03:40 36.4 C L 52 L 18 134/74 95 Room Air 09/13/25 23:02 36.4 C L 45 L 16 149/80 H 96 Room Air Diagnostic Findings Satisfactory aligned right knee replacement (1) Osteoarthritis of right knee Osteoarthritis type: primary Qualified Code(s): M17.11 - Unilateral primary osteoarthritis, right knee
--- NOTE | 2025-09-14 09:08 | Hospitalist Progress Note ---
"Date of Service September 14, 2025 Assessment & Plan (1) Osteoarthritis of right knee: (2) Coronary artery disease: (3) Hypertension: (4) Hyperlipidemia: Plan This is an 79 year old gentleman with past medical history of CAD, HTN, HLD who presented to the hospital for an elective right total knee repair on 09/[address] Hair. #OA of Right knee s/p right total knee w/ Dr. Hair on 09/13. ESBL 20cc diet, pain management, PT/OT, DVT prophylaxis, and discharge planning per primary team. Plan for discharge on 11/15 #CAD | HTN | HLD hx of 2 stents in circumflex in 2021, has been stable since Continue Imdur, Statin, Lisinopril Resume ASA/Plavix when cleared to do so by primary team. Continue to follow w/ cardiology on outpatient basis. DVT prophylaxis: SCDs, per primary team Code: full Admission and Anticipated Discharge Date Admission Date: September 13, 2025 Subjective Patient reports doing well. Patient has no new complaints. Physical Exam Constitutional: WD/WN, vitals as above Neck: trachea midline, no thyromegaly Respiratory: normal respiratory effort, lungs clear to auscultation Cardiovascular: RRR, no murmur, no edema Musculoskeletal: no cyanosis or clubbing, extremities motor strength 5/5 Neurologic: PERRL, EOMI, accommodation nl, no face palsy, no dysarthria Results & Data Results & Data Vital Signs (Past 12 Hours) Vital Signs Temp Pulse Resp BP Pulse Ox O2 Del Method 09/14/25 07:19 36.5 C 47 L 16 119/69 94 Room Air 09/14/25 03:40 36.4 C L 52 L 18 134/74 95 Room Air 09/13/25 23:02 36.4 C L 45 L 16 149/80 H 96 Room Air PG Care Time/CCT Total # of Minutes Spent Total Time Spent with Patient: Total time spent is greater than 50% in coordination of care (as documented) at patient's floor/unit and/or counseling patient: Coding Level of Care Code 76273 SUB INP/OBS CARE 2/35MIN Diagnoses Primary osteoarthritis of right knee M17.11 Osteoarthritis type: primary Coronary artery disease I25.10 Hypertension I10 Hyperlipidemia E78.5 (1) Osteoarthritis of right knee Osteoarthritis type: primary Qualified Code(s): M17.11 - Unilateral primary osteoarthritis, right knee"
== END 2025-09-14 11:53 | disposition home or self-care (01) ==
LOC: 3E 08:10 → ASU 08:10